=== PATIENT | male | born 1995 | race American Indian/Alaskan Native ===

== ENCOUNTER 2019-09-05 23:46 | Emergency (ER) | payer MEDICAID, OTHER ==
[2019-09-05 23:59] VITALS: BP 134/78
[2019-09-06] MEDS ORDERED: FAMOTIDINE 20 MG TAB PO ONE (00:35)
[2019-09-06] MEDS ORDERED: diphenhydrAMINE 25 MG CAP PO ONE (00:35)
[2019-09-06] MEDS ORDERED: methylPREDNISolone Sod Succinate 125 MG/2 ML INJ IM ONE (00:35)
--- NOTE | 2019-09-06 02:09 | Emergency Department Report ---
ED Allergic Reaction HPI - General Chief complaint: Allergic Reaction Stated complaint: MED REACTION Source: patient, EMS Mode of arrival: Ambulatory Limitations: No Limitations - History of Present Illness Initial Comments: Patient is a 24-year-old [place] male with no past medical history presents to the ED with conjugate of acute onset persistent diffuse body tingling sensation and hallucination intermittently after taking Tamiflu for 24 hours. Patient states that he was diagnosed with influenza and prescribed Tamiflu which after he took the first dose he started having visual hallucination, and the patient was at the same effect. Diffuse body tingling sensations. Patient denies swollen lips or tongue, shortness of breath, chest pain, nausea, vomiting, sore throat, swollen lips or tongue, diarrhea, fever or chills and loss of consciousness. MD Complaint: allergic reaction, other (hallucinations, diffuse tingling sensation after taking Tamiflu) -: Sudden, hour(s) (12) Exposure: medication Symptoms: hoarseness, other (hallucinations) Severity: mild Treatment Prior to Arrival: none Previous Allergy History: none - Related Data Previous Rx's Medication Instructions Recorded Last Taken Type Famotidine [Pepcid] 20 mg PO Q12H #20 tablet 09/06/19 Unknown Rx diphenhydrAMINE [Benadryl CAP] 25 mg PO Q6HR PRN #30 capsule 09/06/19 Unknown Rx predniSONE [Deltasone] 40 mg PO QDAY #10 tab 09/06/19 Unknown Rx Allergies Allergy/AdvReac Type Severity Reaction Status Date / Time No Known Allergies Allergy Verified 09/21/13 21:43 ED Review of Systems ROS: Stated complaint: MED REACTION Other details as noted in HPI Constitutional: denies: chills, fever Eyes: denies: eye pain, eye discharge, vision change ENT: denies: ear pain, throat pain Respiratory: denies: cough, shortness of breath, wheezing Cardiovascular: denies: chest pain, palpitations Endocrine: no symptoms reported Gastrointestinal: denies: abdominal pain, nausea, diarrhea Genitourinary: denies: urgency, dysuria Musculoskeletal: denies: back pain, joint swelling, arthralgia Skin: denies: rash, lesions Neurological: denies: headache, weakness, paresthesias Psychiatric: anxiety, visual hallucinations. denies: depression Hematological/Lymphatic: denies: easy bleeding, easy bruising ED Past Medical Hx - Past Medical History Previous Medical History?: No - Surgical History Past Surgical History?: No - Social History Smoking Status: Never Smoker Substance Use Type: None - Medications Home Medications: Home Medications Medication Instructions Recorded Confirmed Last Taken Type Famotidine [Pepcid] 20 mg PO Q12H #20 tablet 09/06/19 Unknown Rx diphenhydrAMINE [Benadryl CAP] 25 mg PO Q6HR PRN #30 capsule 09/06/19 Unknown Rx predniSONE [Deltasone] 40 mg PO QDAY #10 tab 09/06/19 Unknown Rx ED Physical Exam - General Limitations: No Limitations General appearance: alert, in no apparent distress - Head Head exam: Present: atraumatic, normocephalic, normal inspection - Eye Eye exam: Present: normal appearance, PERRL, EOMI Pupils: Present: normal accommodation - ENT ENT exam: Present: normal exam, normal orophraynx, mucous membranes moist, TM's normal bilaterally, normal external ear exam - Neck Neck exam: Present: normal inspection, full ROM - Respiratory Respiratory exam: Present: normal lung sounds bilaterally. Absent: respiratory distress - Cardiovascular Cardiovascular Exam: Present: regular rate, normal rhythm, normal heart sounds. Absent: systolic murmur, diastolic murmur, rubs, gallop - GI/Abdominal GI/Abdominal exam: Present: soft, normal bowel sounds. Absent: tenderness, hyperactive bowel sounds, hypoactive bowel sounds - Extremities Exam Extremities exam: Present: normal inspection, full ROM, normal capillary refill - Back Exam Back exam: Present: normal inspection, full ROM. Absent: muscle spasm, paraspinal tenderness, vertebral tenderness - Neurological Exam Neurological exam: Present: alert, oriented X3, CN II-XII intact, normal gait, reflexes normal - Psychiatric Psychiatric exam: Present: normal affect, normal mood - Skin Skin exam: Present: warm, dry, intact, normal color. Absent: rash ED Course Vital Signs 09/05/19 23:55 Temperature 97.8 F Pulse Rate 67 Respiratory 22 Rate Blood Pressure 134/78 O2 Sat by Pulse 97 Oximetry ED Medical Decision Making - Medical Decision Making This is a 24-year-old male who presented to the ED with persistent diffuse body tingling sensation on hallucinations after taking Tamiflu. In the ED, patient is alert and oriented 3 and is not in distress. Patient was treated in the ED with Benadryl, steroids and Pepcid and was discharged home on medications. Patient is advised to stop taking Tamiflu immediately. Patient was advised to follow-up with his primary care physician in 7-10 days for reevaluation. Patient was also advised to return to the ED immediately if symptoms get worse. - Differential Diagnosis Side effects of medications; Allergic reaction; anxiety Critical care attestation.: If time is entered above; I have spent that time in minutes in the direct care of this critically ill patient, excluding procedure time. ED Disposition Clinical Impression: Acute allergic reaction Qualifiers: Encounter type: initial encounter Qualified Code(s): T78.40XA - Allergy, unspecified, initial encounter Adverse effects of medication Qualifiers: Encounter type: initial encounter Qualified Code(s): T50.905A - Adverse effect of unspecified drugs, medicaments and biological substances, initial encounter Disposition: TO HOME OR SELFCARE Is pt being admited?: No Does the pt Need Aspirin: No Condition: Stable Instructions: Adverse Drug Reaction (ED), Anxiety (ED), Allergies (ED) Additional Instructions: Take medications with food, drink plenty of fluids and follow-up with her primary care physician in 7-10 days for reevaluation. Return to the ED immediately if symptoms get worse. Prescriptions: diphenhydrAMINE [Benadryl CAP] 25 mg PO Q6HR PRN #30 capsule PRN Reason: Allergy Symptoms predniSONE [Deltasone] 40 mg PO QDAY #10 tab Famotidine [Pepcid] 20 mg PO Q12H #20 tablet Referrals: [facility] [Outside] - 7-10 days Time of Disposition: 02:10 Print Language: LUXEMBOURGER
== END 2019-09-06 02:17 | disposition home or self-care (01) ==
LOC: ED 23:46
DX: T78.40XA Allergy, unspecified, initial encounter (principal); T37.5X5A Adverse effect of antiviral drugs, initial encounter; Y92.89 Other specified places as the place of occurrence of the external cause
CPT/HCPCS: 96372; 99283; J2930

== ENCOUNTER 2020-07-27 01:05 | Emergency (ER) | payer OTHER ==
[2020-07-27] MEDS ORDERED: SODIUM CHLORIDE 0.9% 1000 ML 1,000 ML IV ONE (01:42)
[2020-07-27] MEDS ORDERED: ONDANSETRON 4 MG/2 ML INJ IV ONE (01:43)
--- NOTE | 2020-07-27 01:46 | Emergency Department Report ---
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 Patient stated that all symptoms started when he was making an arrest. Patient denied any chest pain or shortness of breath. No focal weakness numbness or tingling sensation. Patient also complaining of headache. No fever or chills. No neck pain. - Related Data Previous Rx's Medication Instructions Recorded Last Taken Type Famotidine [Pepcid] 20 mg PO Q12H #20 tablet 09/06/19 Unknown Rx diphenhydrAMINE [Benadryl CAP] 25 mg PO Q6HR PRN #30 capsule 09/06/19 Unknown Rx predniSONE [Deltasone] 40 mg PO QDAY #10 tab 09/06/19 Unknown Rx Allergies Allergy/AdvReac Type Severity Reaction Status Date / Time oseltamivir [From Tamiflu] Allergy Unknown Verified 07/27/20 02:52 soy Allergy Hives Verified 07/27/20 02:26 ED Review of Systems ROS: Stated complaint: HEADACHE, NAUSEA Other details as noted in HPI Comment: All other systems reviewed and negative Constitutional: denies: chills, fever Respiratory: denies: cough, shortness of breath, SOB with exertion, SOB at rest, wheezing Cardiovascular: denies: chest pain Gastrointestinal: nausea. denies: abdominal pain, vomiting, diarrhea, constipation, hematemesis Musculoskeletal: denies: back pain Neurological: headache. denies: weakness ED Past Medical Hx - Social History Smoking Status: Never Smoker Substance Use Type: None - Medications Home Medications: Home Medications Medication Instructions Recorded Confirmed Last Taken Type Famotidine [Pepcid] 20 mg PO Q12H #20 tablet 09/06/19 Unknown Rx diphenhydrAMINE [Benadryl CAP] 25 mg PO Q6HR PRN #30 capsule 09/06/19 Unknown Rx predniSONE [Deltasone] 40 mg PO QDAY #10 tab 09/06/19 Unknown Rx ED Physical Exam - General Limitations: No Limitations General appearance: alert, in no apparent distress - Head Head exam: Present: atraumatic, normocephalic, normal inspection - Eye Eye exam: Present: normal appearance, PERRL - ENT ENT exam: Present: normal exam, normal orophraynx, mucous membranes moist - Neck Neck exam: Present: normal inspection, full ROM. Absent: tenderness, meningismus - Respiratory Respiratory exam: Present: normal lung sounds bilaterally - Cardiovascular Cardiovascular Exam: Present: regular rate, normal rhythm, normal heart sounds - GI/Abdominal GI/Abdominal exam: Present: soft, normal bowel sounds. Absent: distended, tenderness, guarding, rebound, rigid, organomegaly, mass, bruit, pulsatile mass, hernia - Extremities Exam Extremities exam: Present: normal inspection, full ROM, normal capillary refill - Back Exam Back exam: Present: normal inspection, full ROM. Absent: CVA tenderness (R), CVA tenderness (L) - Neurological Exam Neurological exam: Present: alert, oriented X3, CN II-XII intact - Psychiatric Psychiatric exam: Present: normal mood - Skin Skin exam: Present: warm, intact, normal color ED Course Vital Signs 07/27/20 07/27/20 07/27/20 01:10 01:12 01:30 Temperature 97.8 F Pulse Rate 47 L 56 L 55 L Respiratory 9 L 15 10 L Rate Blood Pressure 134/84 Blood Pressure 134/84 [Right] O2 Sat by Pulse 100 100 100 Oximetry 07/27/20 07/27/20 07/27/20 02:00 02:30 03:00 Temperature Pulse Rate 68 87 Respiratory 12 13 19 Rate Blood Pressure 134/84 122/83 124/75 Blood Pressure [Right] O2 Sat by Pulse 100 100 100 Oximetry ED Medical Decision Making - Lab Data Result diagrams: 07/27/20 01:56 07/27/20 01:56 - EKG Data -: EKG Interpreted by [facility] EKG shows normal: sinus rhythm Rate: bradycardia - EKG Data Interpretation: no acute changes - Radiology Data Radiology results: report reviewed - Medical Decision Making 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 Patient stated that all symptoms started when he was making an arrest. Patient denied any chest pain or shortness of breath. No focal weakness numbness or tingling sensation. Patient also complaining of headache. No fever or chills. No neck pain. Patient EKG shows sinus bradycardia with a heart rate of 56. Patient brought on a kettle tender and his heart rate go from 47-85. Patient denied any chest pain. Patient stated that symptoms completely resolved after a liter of fluids and Zofran. 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 Patient also advised to return to the ER if he develop any new symptoms. Critical care attestation.: If time is entered above; I have spent that time in minutes in the direct care of this critically ill patient, excluding procedure time. ED Disposition Clinical Impression: Dizziness, Bradycardia Disposition: DC-01 TO HOME OR SELFCARE Is pt being admited?: No Condition: Stable Instructions: Bradycardia, Adult, Dizziness, [id number] Referrals: [id number] [Provider Group] - 3-5 Days
--- NOTE | 2020-07-27 02:10 | XRay Report ---
CHEST 1 VIEW INDICATION: Dysrhythmia. COMPARISON: None FINDINGS: SUPPORT DEVICES: None. HEART: Within normal limits. LUNGS/PLEURA: No acute air space or interstitial disease. ADDITIONAL FINDINGS: None. IMPRESSION: 1. No acute findings. Signer Name: Avi Giron MD Signed: 07/27/2020 2:06 AM Workstation Name: [id number]
[2020-07-27 02:36] LABS: Basophils % (Auto) 0.5 % (0.0-1.8); Eosinophils # (Auto) 0.1 K/mm3 (0.0-0.4); Eosinophils % (Auto) 1.1 % (0.0-4.3); Hematocrit 46.2 % (35.5-45.6); Hemoglobin 15.3 gm/dl (11.8-15.2); Lymphocytes % (Auto) 21.7 % (13.4-35.0); Mean Corpuscular HGB Conc 33 % (32-34); Mean Corpuscular Volume 89 fl (84-94); Monocytes # (Auto) 0.5 K/mm3 (0.0-0.8); Monocytes % (Auto) 5.8 % (0.0-7.3); Red Blood Count 5.17 M/mm3 (3.65-5.03); Red Cell Distribution Width 13.6 % (13.2-15.2)
--- NOTE | 2020-07-27 02:37 | Cat Scan Report ---
CT head without contrast INDICATION : headache. TECHNIQUE: Axial imaging performed from the skull apex through the skull base without the use of con trast. All CT scans at this location are performed using CT dose reduction for ALARA by means of aut omated exposure control. COMPARISON: None FINDINGS: Parenchyma: No acute intracranial hemorrhage or parenchymal abnormality. Ventricles: Ventricles are normal in size and appear symmetric. Soft tissues: Soft tissues including the orbits appear normal. Bones: No acute osseous abnormality. Sinuses: Sinuses and mastoid air cells are clear. IMPRESSION: No acute abnormality. Signer Name: Avi Giron MD Signed: 07/27/2020 2:32 AM Workstation Name: [id number]
[2020-07-27 02:39] LABS: BUN/Creatinine Ratio 13; Blood Urea Nitrogen 12 mg/dL (9-20); Calcium 9.6 mg/dL (8.4-10.2); Hemolysis Index 13
[2020-07-27 02:45] LABS: Platelet Count 155 K/mm3 (140-440)
[2020-07-27 02:47] LABS: Bilirubin,Urine NEG (Negative); Blood,Urine NEG (Negative); Color,Urine Yellow (Yellow); Mucus,Urine FEW /HPF; Protein,Urine <15 mg/dL mg/dL (Negative); Urobilinogen,Urine < 2.0 mg/dL (<2.0)
[2020-07-27 02:48] LABS: INR 1.12 (0.87-1.13)
[2020-07-27 02:49] LABS: Alanine Aminotransferase 23 units/L (7-56); Albumin 4.7 g/dL (3.9-5); Partial Thromboplastin Time 27.5 Sec. (24.2-36.6)
[2020-07-27 02:50] LABS: Bilirubin,Direct < 0.2 mg/dL (0-0.2)
[2020-07-27 02:58] LABS: Amphetamine Screen,Urine PRESUMPTIVE NEGATIVE; Benzodiazepines Screen,Urine PRESUMPTIVE NEGATIVE; Cannabinoid Screen,Urine PRESUMPTIVE NEGATIVE; Cocaine Screen,Urine PRESUMPTIVE NEGATIVE; Methadone Screen,Urine PRESUMPTIVE NEGATIVE; Opiate Screen,Urine PRESUMPTIVE NEGATIVE
[2020-07-27 04:50] VITALS: BP 115/65
== END 2020-07-27 04:57 | disposition home or self-care (01) ==
LOC: ED 01:05
DX: R42 Dizziness and giddiness (principal); R00.1 Bradycardia, unspecified; Z79.899 Other long term (current) drug therapy; Z88.8 Allergy status to other drugs, medicaments and biological substances
CPT/HCPCS: 36415; 70450; 71045; 80048; 80076; 80307; 81001; 82550; 83735; 84484; 85025; 85610; 85730; 93005; 96361; 96374; 99285; J2405; J7030